=== PATIENT | female | born 1945 | race Caucasian/White ===

== ENCOUNTER 2018-05-27 16:07 | Emergency (ER) | payer MEDICARE, OTHER ==
--- NOTE | 2018-05-27 16:42 | ERPHSYRPT ---
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 It has stopped bleeding. She denies numbness or tingling. Her last tetanus vaccination was 10 years ago. She is not on blood thinners. Her past medical history is significant for hypertension and high cholesterol. Occurred: just prior to arrival Reason for Fall: tripped, fell from standing pos Injuries/Pain Location: lower extremity (left leg) Loss of Consciousness: no loss of consciousness Quality: aching Severity of Pain-Max: mild Severity of Pain-Current: mild Modifying Factors: Improves With: nothing Associated Symptoms (Fall): denies symptoms Allergies/Adverse Reactions: No Known Drug Allergies Allergy (Unverified 05/27/18 16:21) Home Medications: Lisinopril 10 mg [Zestril 10 MG] 10 mg PO DAILY 05/27/18 [History] Metoprolol Succinate 50 mg [Toprol Xl 50 MG] 50 mg PO DAILY 05/27/18 [ History] Simvastatin 20 mg PO DAILY 05/27/18 [History] Hx Tetanus, Diphtheria Vaccination/Date Given: Yes Hx Influenza Vaccination/Date Given: Yes Hx Pneumococcal Vaccination/Date Given: No Immunizations Up to Date: Yes - Review of Systems Constitutional: No Fever, No Chills Eyes: No Symptoms Ears, Nose, & Throat: No Symptoms Respiratory: No Cough, No Dyspnea Cardiac: No Chest Pain, No Edema, No Syncope Abdominal/Gastrointestinal: No Abdominal Pain, No Nausea, No Vomiting, No Diarrhea Genitourinary Symptoms: No Dysuria Musculoskeletal: Fall, Injury, No Back Pain, No Neck Pain Skin: Other (laceration) Neurological: No Dizziness, No Focal Weakness, No Sensory Changes Psychological: No Symptoms Endocrine: No Symptoms Hematologic/Lymphatic: No Symptoms Immunological/Allergic: No Symptoms All Other Systems: Reviewed and Negative - Past Medical History Pertinent Past Medical History: Yes Cardiac History: High Cholesterol - Past Surgical History Past Surgical History: No - Social History Smoking Status: Never smoker Exposure to second hand smoke: No Drug Use: none Patient Lives Alone: No - Female History Hx Now: No - Nursing Vital Signs Nursing Vital Signs: Initial Vital Signs Temperature 98.4 F 05/27/18 16:17 Pulse Rate 67 05/27/18 16:17 Respiratory Rate 18 05/27/18 16:17 Blood Pressure 149/70 05/27/18 16:17 O2 Sat by Pulse Oximetry 97 05/27/18 16:17 Pain Scale Pain Intensity 0 - Pedro Coma Score Best Eye Response ([place]): (4) open spontaneously Best Verbal Response ([place]): (5) oriented Best Motor Response ([place]): (6) obeys commands [place] Total: 15 - Physical Exam General Appearance: no apparent distress, alert Head Injury: no evidence of injury Eye Exam: PERRL/EOMI ENT Exam: airway nml Neck Exam: normal inspection, No tenderness Respiratory/Chest Exam: normal breath sounds, No chest tenderness, No respiratory distress Cardiovascular Exam: normal heart sounds, regular rate/rhythm Gastrointestinal Exam: soft, No tenderness, No distention, No guarding, No ecchymosis Rectal Exam: not done Back Exam: normal inspection, No vertebral tenderness Extremity Exam: normal inspection, normal range of motion, pelvis stable, No deformities Neurologic Exam: alert, oriented x 3, cooperative, sensation nml, No motor deficits Skin Exam: laceration (large v-shaped laceration to anterior distal left lower leg.) SpO2 Interpretation: normal SpO2: 97 Oxygen Delivery: Room Air Procedures - Laceration/Wound Repair Left Lower Anterior Calf Wound Location: Left, lower leg Wound Length (cm): 12 Wound's Depth, Shape: flap Wound Explored: clean Irrigated: No Hibiclens Prep: Yes Anesthesia: local, 1% Lidocaine Volume Anesthetic (ccs): 20 Wound Debrided: minimal Wound Repaired With: sutures Suture Size/Type: 4-0, ethilon Number of Sutures: 11 Layer Closure?: No Sterile Dressing Applied?: Yes Splint Applied?: No Sling Applied?: No Ordered Tests: Active Orders 24 hr Category Date Time Status Wound Care STAT Care 05/27/18 16:45 Active Medication Summary Discontinued Medications Generic Name Dose Route Start Last Admin Trade Name Livia PRN Reason Stop Dose Admin Diphtheria/Tetanus/Acell Pertussis 0.5 ml 05/27/18 16:45 05/27/18 16:58 Adacel Vial IM 05/27/18 16:46 0.5 ml .ONCE ONE Administration Diphtheria/Tetanus/Acell Pertussis Confirm 05/27/18 16:55 Adacel Vial Administered 05/27/18 16:56 Dose 0.5 ml IM .STK-MED ONE Lidocaine HCl 20 ml 05/27/18 16:45 05/27/18 16:57 Xylocaine 1% Hcl 20 Ml Mdv IJ 05/27/18 16:46 20 ml STAT ONE Administration Lidocaine HCl Confirm 05/27/18 16:55 Xylocaine 1% Hcl 20 Ml Mdv Administered 05/27/18 16:56 Dose 20 ml .ROUTE .STK-MED ONE Lidocaine HCl Confirm 05/27/18 17:49 Xylocaine 1% Hcl 20 Ml Mdv Administered 05/27/18 17:50 Dose 1 ml .ROUTE .STK-MED ONE - Progress Progress: improved Counseled pt/family regarding: diagnosis, need for follow-up - Departure Time of Disposition: 18:27 Departure Disposition: Home Clinical Impression: Laceration of left lower leg without complication Condition: Stable Critical Care Time: No Referrals: EMORY AWAN MD [Primary Care Provider] - Additional Instructions: You had a laceration on your left lower leg closed with 11 sutures. Have the sutures removed by your primary medical doctor in 12 days. Change the dressing tomorrow. After 2 days, you will not need a dressing. Do not swim or take a bath until the sutures are removed. You may take a brief shower and then dry the area. Take Augmentin 875 to times a day for 10 days. Prescriptions: Amoxicillin/Potassium Clav [Augmentin 875-125 Tablet] 875 mg PO BID #20 tablet
[2018-05-27] MEDS ORDERED: XYLOCAINE 1% HCL 20 ML MDV IJ ONE (16:45)
[2018-05-27] MEDS ORDERED: Adacel Vial IM ONE ×2 (16:45→16:55)
[2018-05-27] MEDS ORDERED: XYLOCAINE 1% HCL 20 ML MDV ONE ×2 (16:55→17:49)
[2018-05-27 18:40] VITALS: BP 165/88; PULSE 89; O2SAT 98
== END 2018-05-27 18:38 | disposition home or self-care (01) ==
LOC: ED 16:07
DX: S81.812A Laceration without foreign body, left lower leg, initial encounter (principal); W01.118A Fall on same level from slipping, tripping and stumbling with subsequent striking against other sharp object, initial encounter
CPT/HCPCS: 12004; 90471; 90715; 99284

== ENCOUNTER 2018-06-07 16:25 | Emergency (ER) | payer MEDICARE, OTHER ==
[2018-06-07 16:41] VITALS: BP 111/64; PULSE 72; O2SAT 97
--- NOTE | 2018-06-07 16:56 | ERPHSYRPT ---
- History of Present Illness Time Seen by Provider: 06/07/18 16:51 Source: patient, family Exam Limitations: no limitations Patient Subjective Stated Complaint: pt had stitiches placed 12 days ago-states that he is not available to remove stitches Triage Nursing Assessment: pt pink warm and [id number] well approximated and no drainage-no redness or signs of infection noted Physician History: The patient is a 72-year-old female with her who presents to have stitches removed from her left lower leg. I saw the patient in this ER on May 27, 2018 and placed 11 sutures in her left lower leg that was from a fall when she fell onto a picket fence. She does not have any complaints today. Timing/Duration: day(s) (12) Quality: other (due for stitch removal) Severity: mild Location: extremities (left lower leg) Associated Symptoms: denies symptoms Allergies/Adverse Reactions: No Known Drug Allergies Allergy (Verified 06/07/18 16:41) Home Medications: Lisinopril 10 mg [Zestril 10 MG] 10 mg PO DAILY 05/27/18 [History] Metoprolol Succinate 50 mg [Toprol Xl 50 MG] 50 mg PO DAILY 05/27/18 [ History] Simvastatin 20 mg PO DAILY 05/27/18 [History] Hx Tetanus, Diphtheria Vaccination/Date Given: Yes Hx Influenza Vaccination/Date Given: Yes Hx Pneumococcal Vaccination/Date Given: No Immunizations Up to Date: Yes - Review of Systems Constitutional: No Fever, No Chills Eyes: No Symptoms Ears, Nose, & Throat: No Symptoms Respiratory: No Cough, No Dyspnea Cardiac: No Chest Pain, No Edema, No Syncope Abdominal/Gastrointestinal: No Abdominal Pain, No Nausea, No Vomiting, No Diarrhea Genitourinary Symptoms: No Dysuria Musculoskeletal: No Back Pain, No Neck Pain Skin: Other (suture removal), No Rash Neurological: No Dizziness, No Focal Weakness, No Sensory Changes Psychological: No Symptoms Endocrine: No Symptoms All Other Systems: Reviewed and Negative - Past Medical History Pertinent Past Medical History: Yes Cardiac History: High Cholesterol - Past Surgical History Past Surgical History: No - Social History Smoking Status: Never smoker Exposure to second hand smoke: No Drug Use: none Patient Lives Alone: No - Female History Hx Now: No - Nursing Vital Signs Nursing Vital Signs: Initial Vital Signs Temperature 97.9 F 06/07/18 16:37 Pulse Rate 72 06/07/18 16:37 Respiratory Rate 18 06/07/18 16:37 Blood Pressure 111/64 06/07/18 16:37 O2 Sat by Pulse Oximetry 97 06/07/18 16:37 Pain Scale Pain Intensity 0 - Physical Exam General Appearance: no apparent distress, alert Eye Exam: PERRL/EOMI, eyes nml inspection Ears, Nose, Throat Exam: normal ENT inspection, pharynx normal, moist mucous membranes Neck Exam: normal inspection, non-tender, supple, full range of motion Respiratory Exam: normal breath sounds, lungs clear, No respiratory distress Cardiovascular Exam: regular rate/rhythm, normal heart sounds Gastrointestinal/Abdomen Exam: soft, mass, No tenderness Back Exam: normal inspection, normal range of motion, No CVA tenderness, No vertebral tenderness Extremity Exam: normal inspection, normal range of motion Neurologic Exam: alert, oriented x 3, cooperative, normal mood/affect, sensation nml, No motor deficits Skin Exam: normal color, warm, dry, laceration (healing laceration to left lower leg with 11 sutures intact.) SpO2: 97 Oxygen Delivery: Room Air - Progress Progress: improved - Departure Time of Disposition: 16:54 Departure Disposition: Home Clinical Impression: Visit for suture removal Condition: Stable Critical Care Time: No Referrals: EMORY AWAN MD [Primary Care Provider] - Additional Instructions: You had 11 sutures removed today from the healing laceration on your left lower leg. The laceration looks great. Follow-up with your primary medical doctor as needed.
== END 2018-06-07 17:02 | disposition home or self-care (01) ==
LOC: ED 16:25
DX: Z48.02 Encounter for removal of sutures (principal)
CPT/HCPCS: 99283